=== PATIENT | female | born 1955 | race Two or more races ===

== ENCOUNTER 2024-06-18 11:09 | Outpatient (RCR) | payer MEDICARE, MEDICAID, SELFPAY ==
--- NOTE | 2024-06-22 23:22 | CTCCONSULT_ITS ---
[address] [address] Follow up note DATE OF VISIT: 06/18/2024 NAME: ANNA FRANKLIN Account:??[id number] : 1955 AGE: 68 DIAGNOSIS: Thrombocytopenia, unspecifiedThrombocytopenia Anemia REFERRING PHYSCIAN: Braxton Laughlin PRIMARY PHYSCIAN: Braxton Laughlin REASON FOR CONSULTATION: Thrombocytopenia Anemia REASON FOR TODAY?S VISIT -Patient was referred due to thrombocytopenia and anemia. Patient reports a history of thrombocytopenia for about 5 years. Was previously following up with Dr. Orozco, hematol ogist, last follow-up was 4 years ago. Patient former smoker, patient smoked for 20 years, a pack a day, quit 8 years ago. Patient reports good appetite and energy levels. Patient denies cough weight loss. Patient denies bruising, bleeding concerns, denies bleeding from nose, denies hematuria, megha es blood in stool, and denies abdominal pain, chest pain, and loss of appetite. HISTORY OF PRESENT ILLNESS: patient is 68 yr. Female with thrombocytopenia. Patient is here for follo w up. Labs reveled elevated LDH and less than 10 haptoglbin. old 09/23/2023: Platelets 33,000, hemoglo bin 11.4, MCV 108, ANC 1.5, WBC 3.6, AST 20, ALT 25, T. bili 0.2, hepatitis panel negative, HIV nonre active. 04/08/2024: Platelets 28,000, hemoglobin 7.0, MCV 114, ANC 1.2, WBC 3.3, AST 22, ALT 18, T. bili 0.2 PAST MEDICAL HISTORY: PAST SURGICAL HISTORY: FAMILY HISTORY: SOCIAL HISTORY: [employer] HISTORY: MEDICATIONS: Rybelsus [semaglutide] metFORMIN aspirin Jardiance [empagliflozin] glyBURIDE enalapril maleate levothyroxine ferrous sulfate esomeprazole magnesium dexAMETHasone prednisone Medications last reconciled on 05/08/2024 ALLERGIES: No Known Drug Allergies REVIEW OF SYSTEMS Neurological: No headache, seizures or blurring of vision. Gastrointestinal: No nausea, vomiting, diarrhea or constipation. Cardiovascular: No palpitations or angina pains. Respiratory: No cough, chest pain or shortness of breath. PHYSICAL EXAMINATION: Vital Signs: See Below Pain: Eye: Conjunctivae is white Mouth: No Lesions. Neck: Supple, no adenopathy. Chest: Clear to auscultation. No wheezes or rales audible. Cardiac: Rhythm regular, no murmurs or gallops present. Abdomen: Soft. No hepatosplenomegaly. No splenomegaly. Extremities: No pedal edema. No cyanosis. Discoloration to bilateral lower extremities. VITAL SIGNS: Date Time LABORATORY DATA: Date Time ASSESSMENT AND PLAN: #1. 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 Denies any bleeding concerns. Denies alcohol use. Hepatitis panel negative, HIV nonreactive, 09/23/2023. Labs from 04/08/2024: Platelets 28,000, hemoglobin 7.0, MCV 114, ANC 1.2, WBC 3.3 Scan to evaluate for any lymphadenopathy #2. Anemia. Patient has been taking oral ferrous sulfate for 1 month, prescribed by PCP. Colonoscopy pending #3. Smoking history Smoked 1 pack a day for 20 years, quit [address] of chest without contrast, screening due to smoking history. #4. History of hypothyroidism, diabetes, hypertension Managed by PCP. Dictated and signed by Dequan de anda Electronically Signed by: {Object.Sanct_ID2*PnP.NameFL}, {Object.Sanct_ID2*PnP.Suffix} on {Object.Antoine ct_Date2@d01b} at {Object.Sanct_Time2@t3b} ?? cc: PCP, Referring: Braxton Laughlin This document was completed utilizing speech recognition software. Grammatical errors, random word in sertions, pronoun errors, and incomplete sentences are an occasional consequence of this system due t o software limitations, ambient noise, and hardware issues. Any formal questions or concerns about th e content, text or information contained within the body of this dictation should be directly address ed to the provider for clarification. Patient: ANNA FRANKLIN : 1955 MR#: [id number] CONSULTATION NOTE Page 5 of 5
== END 2024-06-28 23:59 | disposition home or self-care (01) ==
LOC: SCTC 11:09
PROVIDERS: PCP Nurse Practitioner; Referring Provider Nurse Practitioner; Visit Provider Internal Medicine Hematology & Oncology
DX: D69.6 Thrombocytopenia, unspecified (principal); D64.9 Anemia, unspecified; Z87.891 Personal history of nicotine dependence; E03.9 Hypothyroidism, unspecified; E11.9 Type 2 diabetes mellitus without complications; I10 Essential (primary) hypertension
CPT/HCPCS: 99213; G0463

== ENCOUNTER → 2024-06-19 | Outpatient (CLI) | payer MEDICARE, MEDICAID, SELFPAY ==
[2024-06-19 08:39] LABS: Basophils % (Auto) 0 % (0-2.5); Eosinophils # (Auto) 0.1 Thou/mm3 (0.0-0.5); Eosinophils % (Auto) 1 % (0-10); Hematocrit 28.3 % (36.0-46.0); Hemoglobin 9.4 g/dL (12.0-16.0); Immature Granulocytes % (Auto) 0 % (0-0); Immature Granulocytes Auto 0.01 Thou/mm3 (0.00-0.00); Lymphocytes # (Auto) 1.7 Thou/mm3 (1.0-4.8); Lymphocytes % (Auto) 41 % (10-50); Mean Corpuscular HGB Conc 33.2 g/dl (31.0-37.0); Mean Corpuscular Hemoglobin 37.3 pg (25.0-35.0); Mean Corpuscular Volume 112 fL (80-100); Monocytes # (Auto) 0.5 Thou/mm3 (0.0-0.8); Monocytes % (Auto) 11 % (0-12); Neutrophils # (Auto) 1.9 Thou/mm3 (1.8-7.7); Neutrophils % (Auto) 46 % (37-80); Nucleated Red Blood Cell % 0 /100 WBC (0); RDW Standard Deviation 59.5 fL (36.4-46.3); Red Blood Count 2.52 Miln/mm3 (4.00-5.20); White Blood Count 4.2 Thou/mm3 (3.6-11.0)
[2024-06-19 08:43] LABS: Platelet Count 41 Thou/mm3 (140-440)
--- NOTE | 2024-06-19 09:10 | XR_ITS ---
Examination: CT chest, without intravenous contrast. Sagittal and coronal 2-D reconstructions. Exam date and time: June 19, 2024 1001 hours INDICATIONS: Smoking history 20 years CTDI:vol (mGy) 8.22 DLP: (mGycm) 278 Technique: Multiple 3.0 mm axial sections of the chest to been obtained. Bone and lung density settings are obtained. Sagittal and coronal 2-D reconstructions have been obtained. Low dose protocols were performed. One or more of the following dose reduction techniques were used; automated exposure control, adjustment of the mA and/or KV according to patient size, use of iterative reconstruction technique. Findings: No thoracic aortic aneurysm dilatation Main pulmonary artery segments are not enlarged Significant calcification left anterior descending coronary artery No paratracheal tracheobronchial or bronchopulmonary adenopathy 10 mm pulmonary nodule pleural-based right upper lobe image 56 8mm pulmonary nodule left midlung image 162 No pneumonia or pulmonary edema No visualized liver or splenic lesion Contracted gallbladder No pancreatic mass IMPRESSION: Pulmonary nodules as above, with this study as baseline recommend 6 month follow-up CT chest without contrast
[2024-06-19 09:20] LABS: Alanine Aminotransferase 14 U/L (10-49); Albumin, Serum 4.7 gm/dL (3.4-4.8); Albumin/Globulin Ratio 1.7 (1.2-2.2); Alkaline Phosphatase 85 U/L (46-116); Anion Gap 5 (7-16); Aspartate Amino Transferase 16 U/L (0-34); BUN/Creatinine Ratio 16 Ratio (12-20); Bilirubin,Total 0.3 mg/dL (0.3-1.2); Blood Urea Nitrogen 13 mg/dL (9-23); Calcium 9.7 mg/dL (8.3-10.6); Calcium (Corrected) 9.7 mg/dL (8.5-10.1); Carbon Dioxide 26.7 mMol/L (20.0-31.0); Chloride 106 mMol/L (98-107); Creatinine (Component) 0.8 mg/dL (0.6-1.3); Globulin 2.8 gm/dL (2.3-3.5); Glucose 140 mg/dL (74-106); Osmolality,Calculated 277 (275-295); Potassium 4.7 mMol/L (3.4-5.1); Sodium 138 mMol/L (136-145); Total Protein 7.5 gm/dL (5.7-8.2); eGFR > 60 See Note
[2024-06-19 12:39] LABS: Slide Review Platelets confirmed
== END | disposition home or self-care (01) ==
LOC: CCTX 07:43
PROVIDERS: Referring Provider Internal Medicine Hematology & Oncology; Visit Provider Nurse Practitioner Family
DX: R91.8 Other nonspecific abnormal finding of lung field (principal); D69.6 Thrombocytopenia, unspecified; Z87.891 Personal history of nicotine dependence
CPT/HCPCS: 36415; 71250; 80053; 85025